=== PATIENT | male | born 1945 | race African-American/Black ===

== ENCOUNTER 2024-09-14 11:30 | Inpatient (IN) | payer OTHER ==
[~2024-09-14] VITALS: Ht 175.3 cm; Wt 84.8 kg
[2024-09-14] MEDS: FENTANYL CITRATE/PF 50MCG/ML 2ML VIAL IV ONE (13:33)
[2024-09-14] MEDS: ONDANSETRON HCL 4MG/2ML INJ IV ONE (13:33)
[2024-09-14] MEDS: FENTANYL CITRATE/PF 50MCG/ML 2ML VIAL IV NR (13:38)
[2024-09-14] MEDS: DIAZEPAM 5 MG/ML 2ML SYR IV STA (14:44)
[2024-09-14] MEDS: MORPHINE SULFATE 4 MG/ML INJ (FOR IV/IM USE) IV STA (14:44)
[2024-09-14 15:13] LABS: BASOPHILS % 0.4 % (0.0-2.0); EOSINOPHILS % 1.8 % (0.0-5.0); HEMOGLOBIN. 12.6 g/dL (14.0-18.0); MEAN CORPUSCULAR HEMOGLOBIN 32.5 pg (28.0-32.0); MEAN CORPUSCULAR HGB CONC 33.2 g/dL (31.0-37.0); MEAN CORPUSCULAR VOLUME 97.7 fL (80.0-94.0); MEAN PLATELET VOLUME 7.5 fl (7.4-10.4); MONOCYTES % 8.7 % (2.0-8.0); NEUTROPHILS % 80.1 % (40.0-76.0); PLATELET 156 x1000/uL (130-400); RED BLOOD CELL COUNT 3.89 mill/uL (4.7-6.1); RED CELL DISTRIBUTION WIDTH 14.1 % (11.6-14.6); WHITE BLOOD COUNT 5.9 x1000/uL (4.5-11.0)
[2024-09-14 15:21] LABS: CHLORIDE 109 mEq/L (98-107); POTASSIUM 3.8 mEq/L (3.5-5.1); SODIUM 140 mEq/L (136-145)
[2024-09-14 15:22] LABS: CALCIUM 8.9 mg/dL (8.7-10.4); CARBON DIOXIDE 25 mEq/L (21-32)
[2024-09-14 15:27] LABS: CREATININE 0.9 mg/dL (0.6-1.3); GLUCOSE 103 mg/dL (70-105); UREA NITROGEN BLOOD 15 mg/dL (9-23)
[2024-09-14] MEDS ORDERED: ZOLPIDEM TARTRATE 5MG TABLET PO PRN (17:00)
[2024-09-14] MEDS ORDERED: ONDANSETRON HCL 4MG/2ML INJ IV PRN (17:00)
[2024-09-14] MEDS: MORPHINE SULFATE 2 MG/ML INJ (NOT FOR IM USE) IV PRN (17:19)
[2024-09-14] MEDS ORDERED: NALOXONE HCL 0.4MG/ML VIAL IV PRN (18:00)
[2024-09-14] MEDS: ENOXAPARIN 40MG/0.4ML SYR SUBCUT SCH (19:35)
[2024-09-14 20:00] VITALS: BP 114/49; PULSE 72; RESP 18; TEMP 36.8; O2SAT 97
[2024-09-14] MEDS: VANCOMYCIN 1.5GM/250ML 250 ML IV NR (22:09)
[2024-09-15] VITALS: BP 121/54; PULSE 66; RESP 18; TEMP 36.4; O2SAT 96
[2024-09-15 03:58] LABS: *AMPHETAMINES SCREEN URINE NEGATIVE (NEGATIVE); *BARBITURATES SCREEN URINE NEGATIVE (NEGATIVE); *BENZODIAZEPINES SCREEN URINE NEGATIVE (NEGATIVE); *COCAINE SCREEN URINE NEGATIVE (NEGATIVE)
[2024-09-15 03:59] LABS: CANNABINOID URINE SCREEN PRESUMPTIVE POSITIVE (NEGATIVE); ECSTASY MDMA SCREEN URINE NEGATIVE (NEGATIVE); METHADONE URINE SCREEN NEGATIVE (NEGATIVE); OPIATES URINE SCREEN PRESUMPTIVE POSITIVE (NEGATIVE); PHENCYCLIDINE URINE SCREEN NEGATIVE (NEGATIVE)
[2024-09-15 04:00] VITALS: BP 120/53; PULSE 60; RESP 16; TEMP 36.9; O2SAT 98
[2024-09-15 06:25] LABS: CARBON DIOXIDE 26 mEq/L (21-32); CHLORIDE 107 mEq/L (98-107); POTASSIUM 3.7 mEq/L (3.5-5.1); SODIUM 141 mEq/L (136-145)
[2024-09-15 06:26] LABS: CALCIUM 9.6 mg/dL (8.7-10.4)
[2024-09-15 06:29] LABS: CREATININE 0.9 mg/dL (0.6-1.3)
[2024-09-15 06:30] LABS: GLUCOSE 110 mg/dL (70-105)
[2024-09-15 06:31] LABS: UREA NITROGEN BLOOD 10 mg/dL (9-23)
[2024-09-15 07:01] LABS: BASOPHILS % 0.4 % (0.0-2.0); EOSINOPHILS % 3.8 % (0.0-5.0); HEMATOCRIT. 36.9 % (42.0-52.0); HEMOGLOBIN. 12.8 g/dL (14.0-18.0); LYMPHOCYTES % 8.3 % (20.0-50.0); MEAN CORPUSCULAR HEMOGLOBIN 34.6 pg (28.0-32.0); MEAN CORPUSCULAR HGB CONC 34.7 g/dL (31.0-37.0); MEAN CORPUSCULAR VOLUME 99.8 fL (80.0-94.0); MEAN PLATELET VOLUME 8.4 fl (7.4-10.4); MONOCYTES % 10.9 % (2.0-8.0); NEUTROPHILS % 76.6 % (40.0-76.0); PLATELET 145 x1000/uL (130-400); WHITE BLOOD COUNT 5.2 x1000/uL (4.5-11.0)
[2024-09-15 08:00] VITALS: BP 130/70; PULSE 74; RESP 18; TEMP 36.7; O2SAT 97
[2024-09-15] MEDS: PANTOPRAZOLE SODIUM 40 MG/VIAL IV SCH (09:45)
[2024-09-15] MEDS: VANCOMYCIN 750MG/150ML (BAXTER) IV SCH (09:45)
[2024-09-15 12:00] VITALS: BP 154/67; PULSE 77; RESP 17; TEMP 36.4; O2SAT 98
[2024-09-15 16:00] VITALS: BP 137/70; PULSE 67; RESP 17; TEMP 36.4; O2SAT 97
[2024-09-15 20:00] VITALS: BP 150/70; PULSE 77; RESP 17; TEMP 36.7; O2SAT 96
[2024-09-16] VITALS: BP 155/75; PULSE 77; RESP 16; TEMP 36.7; O2SAT 97
[2024-09-16 04:00] VITALS: BP 169/87; PULSE 92; RESP 18; TEMP 36.7; O2SAT 95
[2024-09-16] MEDS: CLONIDINE 0.1MG TABLET PO PRN (06:19)
[2024-09-16 08:00] VITALS: BP 151/85; PULSE 95; RESP 18; TEMP 36.6; O2SAT 96
[2024-09-16] MEDS ORDERED: LISI40TA13 MT (09:28)
[2024-09-16] MEDS: HYDROCHLOROTHIAZIDE 12.5MG CAPSULE PO NR (09:30)
[2024-09-16 10:17] LABS: HEMATOCRIT. 39.8 % (42.0-52.0); HEMOGLOBIN. 13.3 g/dL (14.0-18.0); MEAN CORPUSCULAR HEMOGLOBIN 32.9 pg (28.0-32.0); MEAN CORPUSCULAR HGB CONC 33.5 g/dL (31.0-37.0); MEAN CORPUSCULAR VOLUME 98.2 fL (80.0-94.0); MEAN PLATELET VOLUME 7.4 fl (7.4-10.4); PLATELET 162 x1000/uL (130-400); RED BLOOD CELL COUNT 4.05 mill/uL (4.7-6.1); RED CELL DISTRIBUTION WIDTH 14.1 % (11.6-14.6); WHITE BLOOD COUNT 5.7 x1000/uL (4.5-11.0)
[2024-09-16 10:23] LABS: CHLORIDE 106 mEq/L (98-107); POTASSIUM 4.1 mEq/L (3.5-5.1); SODIUM 140 mEq/L (136-145)
[2024-09-16 10:24] LABS: CARBON DIOXIDE 28 mEq/L (21-32)
[2024-09-16 10:25] LABS: CALCIUM 9.8 mg/dL (8.7-10.4); DIFFERENTIAL COMMENT 1
[2024-09-16 10:29] LABS: GLUCOSE 179 mg/dL (70-105); UREA NITROGEN BLOOD 9 mg/dL (9-23)
[2024-09-16] MEDS: ACETAMINOPHEN 325MG TABLET PO PRN (11:40)
[2024-09-16 12:00] VITALS: BP 113/51; PULSE 60; RESP 16; TEMP 36.8; O2SAT 99
[2024-09-16 12:40] LABS: PLATELET ESTIMATE NORMAL
[2024-09-16] MEDS: DOCUSATE SODIUM 100MG CAPSULE PO SCH (15:11)
[2024-09-16] MEDS: HYDROCODONE/ACETAMINOPHEN 5/325MG TABLET PO PRN (15:32)
[2024-09-16 16:00] VITALS: BP 121/47; PULSE 65; RESP 16; TEMP 36.7; O2SAT 99
[2024-09-16] MEDS: KETOROLAC 15MG/ML VIAL IV SCH (17:14)
[2024-09-16] MEDS: LIDOCAINE 5% PATCH TOP SCH (17:14)
[2024-09-16 20:00] VITALS: BP 160/77; PULSE 62; RESP 17; TEMP 36.4; O2SAT 96
[2024-09-16] MEDS: METHOCARBAMOL 500MG TABLET PO SCH (21:43)
[2024-09-17] VITALS (7 sets, daily range): BP systolic 115–148; BP diastolic 51–70; PULSE 57–80; RESP 17–20; TEMP 36.2–36.7; O2SAT 96–100
[2024-09-17] MEDS ORDERED: TAMS-11 PO (00:16)
[2024-09-17] MEDS ORDERED: ROSU40TA PO (00:19)
[2024-09-17] MEDS ORDERED: EZET10TA81 PO (00:21)
[2024-09-17] MEDS ORDERED: HYDR12.54 PO (00:23)
[2024-09-17] MEDS ORDERED: ALLO100T PO (00:25)
[2024-09-17] MEDS: TAMSULOSIN HCL 0.4MG SR CAPSULE PO SCH (02:59)
[2024-09-17 07:07] LABS: CALCIUM 9.7 mg/dL (8.7-10.4); CHLORIDE 106 mEq/L (98-107); POTASSIUM 3.8 mEq/L (3.5-5.1); SODIUM 140 mEq/L (136-145)
[2024-09-17 07:08] LABS: CARBON DIOXIDE 25 mEq/L (21-32)
[2024-09-17 07:13] LABS: GLUCOSE 87 mg/dL (70-105); UREA NITROGEN BLOOD 16 mg/dL (9-23)
[2024-09-17 07:15] LABS: BASOPHILS % 0.5 % (0.0-2.0); EOSINOPHILS % 4.4 % (0.0-5.0); HEMATOCRIT. 37.3 % (42.0-52.0); HEMOGLOBIN. 12.8 g/dL (14.0-18.0); LYMPHOCYTES % 15.2 % (20.0-50.0); MEAN CORPUSCULAR HEMOGLOBIN 33.9 pg (28.0-32.0); MEAN CORPUSCULAR HGB CONC 34.2 g/dL (31.0-37.0); MEAN CORPUSCULAR VOLUME 99.2 fL (80.0-94.0); MEAN PLATELET VOLUME 8.1 fl (7.4-10.4); MONOCYTES % 13.6 % (2.0-8.0); NEUTROPHILS % 66.3 % (40.0-76.0); PLATELET 155 x1000/uL (130-400); RED BLOOD CELL COUNT 3.77 mill/uL (4.7-6.1); RED CELL DISTRIBUTION WIDTH 14.6 % (11.6-14.6); WHITE BLOOD COUNT 4.9 x1000/uL (4.5-11.0)
[2024-09-17] MEDS: FAMOTIDINE 20MG/2ML VIAL IV SCH (09:30)
[2024-09-17] MEDS: DEXAMETHASONE 4MG/ML 1ML VIAL IV SCH (18:00)
[2024-09-18 04:00] VITALS: BP 127/61; PULSE 65; RESP 18; TEMP 36.3
[2024-09-18 08:00] VITALS: BP 126/50; PULSE 65; RESP 16; TEMP 36.4; O2SAT 96
[2024-09-18 12:00] VITALS: BP 151/71; PULSE 92; RESP 16; TEMP 36.8; O2SAT 98
[2024-09-18 16:00] VITALS: BP 113/71; PULSE 64; RESP 18; TEMP 36.7; O2SAT 96
[2024-09-18] MEDS: DULOXETINE HCL 30MG DR CAPSULE PO SCH (16:28)
[2024-09-18 20:00] VITALS: BP_SYST 148; BP_SYST 168; BP_DIAS 66; BP_DIAS 74; PULSE 66; RESP 18; TEMP 36.3; O2SAT 97
[2024-09-19] VITALS: BP 140/60; PULSE 60; RESP 16; TEMP 36.7; O2SAT 96
[2024-09-19 04:00] VITALS: BP 139/58; PULSE 61; RESP 17; TEMP 36.7; O2SAT 96
[2024-09-19 08:00] VITALS: BP 145/82; PULSE 67; RESP 16; TEMP 36.4; O2SAT 97
[2024-09-19 12:00] VITALS: BP 150/68; PULSE 60; RESP 16; TEMP 36.6; O2SAT 97
[2024-09-19 16:00] VITALS: BP 142/74; PULSE 60; RESP 16; TEMP 36.7; O2SAT 99
[2024-09-19] MEDS: PREGABALIN 50 MG CAPSULE PO SCH (18:17)
[2024-09-19 20:00] VITALS: BP 120/80; PULSE 73; RESP 18; TEMP 36.7; O2SAT 99
[2024-09-20 04:00] VITALS: BP 145/68; PULSE 92; RESP 18; TEMP 37.3; O2SAT 94
[2024-09-20 08:00] VITALS: BP 159/76; PULSE 55; RESP 18; TEMP 37.3; O2SAT 95
[2024-09-20 12:00] VITALS: BP 156/77; PULSE 50; RESP 18; TEMP 36.8; O2SAT 95
[2024-09-20] MEDS ORDERED: DULO30CA2 PO (14:15)
[2024-09-20] MEDS ORDERED: DOCU-422 PO (14:15)
[2024-09-20] MEDS ORDERED: PREG50CA PO (14:15)
[2024-09-20] MEDS ORDERED: LIDO700A30 TOP (14:15)
[2024-09-20] MEDS ORDERED: HYDR-4001 PO (14:15)
[2024-09-20 15:08] VITALS: BP 156/77; PULSE 50; TEMP 98.2; O2SAT 95
== END 2024-09-20 17:40 | disposition home health service (06) | DRG 552 ==
LOC: ER 11:30 → 5WST 16:35 → EDBEDREQTM 16:40 → EDBEDREQ 16:40 → 8EST 09-19 18:56
PROVIDERS: ADMIT Internal Medicine; ATTEND Internal Medicine
DX: M51.16 Intervertebral disc disorders with radiculopathy, lumbar region (principal); M48.061 Spinal stenosis, lumbar region without neurogenic claudication; M47.26 Other spondylosis with radiculopathy, lumbar region; I10 Essential (primary) hypertension; N40.0 Benign prostatic hyperplasia without lower urinary tract symptoms; G89.29 Other chronic pain; Z96.643 Presence of artificial hip joint, bilateral; Z88.5 Allergy status to narcotic agent; Z88.0 Allergy status to penicillin; Z79.899 Other long term (current) drug therapy
CPT/HCPCS: 36415; 72148; 72192; 73502; 80048; 80202; 80305; 85025; 93970; 97162; 99285; A4606; C1893; J1100; J1650; J1885; J2270; J2405; J2470; J3010; J3370; J3490